=== PATIENT | female | born 1970 | race Caucasian/White ===

== ENCOUNTER 2017-03-27 07:18 | Day surgery (SDC) | payer BC, OTHER ==
[~2017-03-27] VITALS: Ht 154.9 cm; Wt 104.0 kg
[~2017-03-27 07:18] MED LIST: B-COMPLEX-VITA1 EACH PO; BUPROBAN150 MG PO; CELEXA40 MG PO; CITALOPRAM HBR20 MG PO; CYANOCOBALAM1000 MCG PO; DAILY VALUE1 EACH PO; DILAUDID4 MG PO; GABAPENTIN400 MG PO; HAIR, SKIN & N1 EAC1 PO; IRON325 M1 PO; LIPITOR40 MG PO; LO-DOSE ASPIRIN81 M1 PO; LOTRISONE15 GM TP; LYRICA100 MG PO; MOTRIN800 MG PO; PERCOCET 5-3251 EACH PO; STOOL SOFTENER100 MG PO; TUMS DUAL ACTI1 EACH PO; TYLENOL EXTRA500 MG PO; XANAX0.25 MG PO; XARELTO20 MG PO; ZANTAC150 MG PO
[2017-03-27 08:01] VITALS: BP 113/63
[2017-03-27 08:08] LABS: HEMATOCRIT 40.3 % (36.0-46.0); MCH 31.8 PG (29.0-34.0); MCHC 33.3 G/DL (30.0-36.0); MCV 95.7 FL (83-99); MEAN PLAT.VOLUME 11.4 uM^3 (9.5-12.4); PLATELET COUNT 293 K/uL (156-360); RBC DIS.WIDTH-CV 12.4 % (11.8-14.6); RBC DIS.WIDTH-SD 43.4 % (39-53); RED BLOOD COUNT 4.21 M/uL (3.80-5.20)
[2017-03-27 08:18] LABS: PROTHROMBIN TIME 10.1 (9.2-11.2); PTT 25.4 (25-32)
[2017-03-27] MEDS ORDERED: PERCOCET 5/31 TABLET PO (10:25)
[2017-03-27 11:45] VITALS: BP 123/71
[2017-03-27 12:44] VITALS: BP 105/65
== END 2017-03-27 13:10 | disposition home or self-care (01) ==
LOC: SDC
PROVIDERS: Obstetrics & Gynecology
PROC: 0TUD7JZ Supplement Urethra with Synthetic Substitute, Via Natural or Artificial Opening (ICD-10-PCS; principal; 2017-03-27)
DX: N39.3 Stress incontinence (female) (male) (principal); K21.9 Gastro-esophageal reflux disease without esophagitis; Z87.891 Personal history of nicotine dependence; Z86.73 Personal history of transient ischemic attack (TIA), and cerebral infarction without residual deficits; Z91.040 Latex allergy status
CPT/HCPCS: 84702; 85027; 85610; 85730; 86900; 86901; C1771; J0131; J0690; J1100; J1644; J1885; J2250; J2405; J3010; J7120

== ENCOUNTER 2017-08-22 15:23 | Emergency (ER) | payer BC, OTHER ==
[~2017-08-22] VITALS: Ht 154.9 cm; Wt 102.7 kg
[~2017-08-22 15:23] MED LIST changes: +PERCOCET 5/31 TABLET PO
[2017-08-22 16:31] LABS: EOSINOPHIL COUNT 0.1 K/uL (0-0.3); HEMATOCRIT 39.2 % (36.0-46.0); IMMATURE GRANULOCYTE (%) 0.2 % (0.0-0.7); INSTRUMENT ABS NEUTROPHIL CT 7.5 K/uL; MCH 31.3 PG (29.0-34.0); MCHC 32.7 G/DL (30.0-36.0); MCV 95.8 FL (83-99); MEAN PLAT.VOLUME 11.8 uM^3 (9.5-12.4); MONOCYTE (%) 6.7 % (3-12); MONOCYTE COUNT 0.7 K/uL (0-0.8); NEUTROPHIL (%) 72.6 % (45-76); NEUTROPHIL COUNT 7.5 K/uL (1.8-6.4); PLATELET COUNT 223 K/uL (156-360); RBC DIS.WIDTH-CV 12.2 % (11.8-14.6); RBC DIS.WIDTH-SD 42.9 % (39-53); RED BLOOD COUNT 4.09 M/uL (3.80-5.20); WHITE BLOOD COUNT 10.4 K/uL (4.1-10.2)
[2017-08-22 16:37] LABS: INTER. NORMALIZED RATIO 1.8
[2017-08-22 16:40] LABS: CHLORIDE 107 mEq/L (99-109); POTASSIUM 3.9 mEq/L (3.7-5.4); SODIUM 142 mEq/L (136-147)
[2017-08-22 16:41] LABS: GLUCOSE 116 mg/dL (70-99)
[2017-08-22 16:43] LABS: ANION GAP 11 MEQ/L (2-14); PROTHROMBIN TIME 20.5 SEC (10.2-12.9)
[2017-08-22 16:46] LABS: GFR ESTIMATE (CALCULATED) > 59 mL/min/; UREA NITROGEN (BUN) 9 mg/dL (9-23)
[2017-08-22 18:54] VITALS: BP 147/76
== END 2017-08-22 19:14 | disposition home or self-care (01) ==
LOC: EME 15:23
PROVIDERS: Emergency Medicine
DX: S80.11XA Contusion of right lower leg, initial encounter (principal); X58.XXXA Exposure to other specified factors, initial encounter; Z86.73 Personal history of transient ischemic attack (TIA), and cerebral infarction without residual deficits; Z86.718 Personal history of other venous thrombosis and embolism; Z89.222 Acquired absence of left upper limb above elbow; Z79.01 Long term (current) use of anticoagulants; Z79.82 Long term (current) use of aspirin; Z87.891 Personal history of nicotine dependence
CPT/HCPCS: 80048; 85025; 85610; 93971; 99281; 99282